=== PATIENT | female | born 1985 | race Asian ===

== ENCOUNTER → 2019-02-25 | Outpatient (CLI) | payer OTHER ==
[2019-02-25 07:52] LABS: GLUCOSE FASTING 93 mg/dL (70-110)
== END | disposition home or self-care (01) ==
LOC: LB 07:02
DX: Z34.90 Encounter for supervision of normal pregnancy, unspecified, unspecified trimester (principal)

== ENCOUNTER 2020-05-24 06:58 | Day surgery (SDC) | payer OTHER ==
[~2020-05-24] VITALS: Ht 160 cm; Wt 48.1 kg
[2020-05-24 07:21] VITALS: BP 102/63
[2020-05-24 12:00] VITALS: BP 111/67
== END 2020-05-24 11:40 | disposition home or self-care (01) ==
LOC: GI 06:58 → OR 09:00 → GI 11:40
PROVIDERS: ATTEND Internal Medicine Gastroenterology
DX: R10.13 Epigastric pain (principal); D50.9 Iron deficiency anemia, unspecified; C16.3 Malignant neoplasm of pyloric antrum; Z79.82 Long term (current) use of aspirin; Z11.59 Encounter for screening for other viral diseases
CPT/HCPCS: 43235; J1200; J1610; J2250; J2310; J3010; J3490; U0003-CS

== ENCOUNTER → 2020-06-08 | Outpatient (CLI) | payer OTHER | END | disposition home or self-care (01) | LOC: CT 09:52 | PROC: BW2F1ZZ Computerized Tomography (CT Scan) of Neck using Low Osmolar Contrast (ICD-10-PCS; principal; 2020-06-08) | PROC: BW251ZZ Computerized Tomography (CT Scan) of Chest, Abdomen and Pelvis using Low Osmolar Contrast (ICD-10-PCS; 2020-06-08) | DX: D50.9 Iron deficiency anemia, unspecified (principal); C85.90 Non-Hodgkin lymphoma, unspecified, unspecified site | CPT/HCPCS: Q9967 ==